=== PATIENT | male | born 1985 | race African-American/Black ===

== ENCOUNTER 2023-08-19 07:30 | Inpatient (IN) ==
[2023-09-02] MEDS ORDERED: Buffered Lidocaine 1% SYRIN 1 ml INTRADERM ONE (06:00)
[2023-09-02] MEDS ORDERED: Lactated Ringers 1000 ml BAG 1,000 ML IV SCH (06:00)
[2023-09-02] MEDS ORDERED: Heparin 5000 UNITS/ML 1 mL VIAL ONE (06:33)
[2023-09-02] MEDS ORDERED: ceFAZolin *3* GM in NS PREMIX 3 GM/100 ML BAG IV ONE (06:33)
[2023-09-02 06:57] LABS: Rapid COVID-19 Molecular Undetected (Undetected)
[2023-09-02] MEDS ORDERED: Scopolamine 1 mg/72hr PATCH ONE (07:01)
[2023-09-02] MEDS ORDERED: Bupivacaine 0.5% SDV PF 30ML VIAL ONE (07:04)
[2023-09-02] MEDS ORDERED: Methylene Blue 1% (ANTIDOTE) 10 MG/ML 1 ML SDV VIAL IVPB ONE (07:04)
[2023-09-02] MEDS ORDERED: Lidocaine 1% w EPI 1:200,000 SDV 30 ML VIAL ONE (07:04)
[2023-09-02] MEDS ORDERED: Midazolam 2 mg/2 ml VIAL 1 mg/ml 2 ml VIAL (2 mg) ONE (07:11)
[2023-09-02] MEDS ORDERED: Rocuronium 50 mg VIAL 10 mg/ml 5 ml VIAL (50 mg) ONE ×2 (07:11→09:28)
[2023-09-02] MEDS ORDERED: Lidocaine 2% PF 5 ML VIAL ONE (07:11)
[2023-09-02] MEDS ORDERED: Dexamethasone IV 4 MG/ML VIAL 1 ml VIAL ONE (07:11)
[2023-09-02] MEDS ORDERED: Ondansetron 4 mg VIAL 2 MG/ML 2 ml VIAL ONE (07:11)
[2023-09-02] MEDS ORDERED: fentaNYL 250 mcg/5 ml 50 MCG/ML 5 ml VIAL (250 MCG) ONE (07:11)
[2023-09-02] MEDS ORDERED: Propofol 10 MG/ML 20 ML BTL ONE (07:11)
[2023-09-02] MEDS ORDERED: Acetaminophen IV 1 GM/100ML 1,000 MG/100 ML BAG IV PRN (07:54)
[2023-09-02] MEDS ORDERED: Naloxone 0.4 mg VIAL 0.4 mg/ml 1 ml VIAL IV PRN (07:54)
[2023-09-02] MEDS ORDERED: Ondansetron 4 mg VIAL 2 MG/ML 2 ml VIAL IV PRN ×2 (07:54→11:03)
[2023-09-02] MEDS ORDERED: Acetaminophen IV 1 GM/100ML 1,000 MG/100 ML BAG IV ONE (08:13)
[2023-09-02] MEDS: Acetaminophen IV 1 GM/100ML 1,000 MG/100 ML BAG IV PRN ×2 (08:14→21:36)
[2023-09-02] MEDS ORDERED: HYDROmorphone 0.5 MG/0.5 ML SYRINGE ONE (09:52)
[2023-09-02] MEDS ORDERED: HYDROmorphone 0.5 MG/0.5 ML SYRINGE IV SLOW PU PRN (11:03)
[2023-09-02] MEDS ORDERED: HYDROcodone/ACET. 7.5/325 LIQ 15 ML UDC PO PRN (11:03)
[2023-09-02] MEDS ORDERED: HYDROmorphone 1 MG/1 ML SYRINGE IV SLOW PU PRN (11:03)
[2023-09-02] MEDS ORDERED: HYDROmorphone 1 MG/1 ML SYRINGE ONE (11:04)
[2023-09-02] MEDS: HYDROmorphone 1 MG/1 ML SYRINGE IV PRN ×5 (11:05→11:45)
[2023-09-02] MEDS ORDERED: fentaNYL 100 mcg/2 ml 50 MCG/ML VIAL ONE (11:39)
[2023-09-02] MEDS: fentaNYL 100 mcg/2 ml 50 MCG/ML VIAL IV PRN ×4 (11:42→11:57)
[2023-09-02] MEDS: Lactated Ringers 1000 ml BAG 1,000 ML IV SCH ×2 (13:08→21:32)
[2023-09-02] MEDS: Heparin 5000 UNITS/ML 1 mL VIAL SUBCUT SCH ×2 (14:36→21:33)
[2023-09-02] MEDS: Famotidine IV 10 MG/ML 2 ml VIAL (20 mg) IV SLOW PU SCH (21:33)
[2023-09-03] MEDS: Lactated Ringers 1000 ml BAG 1,000 ML IV SCH (04:31)
[2023-09-03] MEDS: Heparin 5000 UNITS/ML 1 mL VIAL SUBCUT SCH ×2 (06:35→13:45)
[2023-09-03] MEDS: Famotidine IV 10 MG/ML 2 ml VIAL (20 mg) IV SLOW PU SCH (08:27)
[2023-09-03] MEDS ORDERED: D5W 1/2 NS KCl 20 meq 1000 ml 1,000 ML IV SCH (12:00)
[2023-09-03 14:19] VITALS: BP 143/82
== END 2023-09-03 14:43 | disposition home or self-care (01) | DRG 621 ==
LOC: AA 09-02 06:06 → SSU 09-02 12:33
PROVIDERS: ADMIT Surgery; ATTEND Surgery